=== PATIENT | male | born 1980 | race African-American/Black ===

== ENCOUNTER 2024-10-24 08:00 | Emergency (ER) | payer OTHER ==
[~2024-10-24] VITALS: Ht 180.3 cm; Wt 129.0 kg
[2024-10-24 08:11] VITALS: O2SAT 97
[2024-10-24] MEDS: TETANUS, DIPHTHERIA, PERTUSSIS VAC/PF 0.5ML (>10YR OLD) IM ONE (08:35)
[2024-10-24] MEDS ORDERED: BO1 TP (08:43)
[2024-10-24 09:21] VITALS: BP 133/77; PULSE 74; RESP 18; TEMP 36.7; O2SAT 99
[2024-10-24] MEDS: LIDOCAINE HCL 1% 20ML VIAL INFIL ONE (09:21)
== END 2024-10-24 09:28 | disposition home or self-care (01) ==
LOC: ER 08:00
DX: S01.81XA Laceration without foreign body of other part of head, initial encounter (principal); W18.30XA Fall on same level, unspecified, initial encounter; Y93.89 Activity, other specified; Y92.89 Other specified places as the place of occurrence of the external cause; Y99.8 Other external cause status
CPT/HCPCS: 90715; 12011; 90471; 99283; Z7610 ×2